=== PATIENT | female | born 1995 | race Caucasian/White ===

== ENCOUNTER 2017-08-02 21:37 | Emergency (ER) | payer OTHER ==
[2017-08-02 23:36] LABS: BASOPHIL % 0.2 % (0-2)
[2017-08-02 23:40] LABS: PLATELET COUNT 419 x10^3mcL (130-400); RED CELL DISTRIBUTION WIDTH 17.1 % (11.5-14.5)
[2017-08-02 23:46] LABS: CALCIUM 8.2 mg/dL (8.5-10.1); CARBON DIOXIDE 25.5 mmol/L (21-32); CHLORIDE SERUM 102 mmol/L (98-107); CREATININE SERUM 0.8 mg/dL (0.6-1.0); GFR1 > 60 mL/min; GLUCOSE SERUM 116 mg/dL (74-106); POTASSIUM SERUM 3.4 mmol/L (3.5-5.1); SODIUM SERUM 137 mmol/L (136-145)
[2017-08-02 23:51] LABS: ALKALINE PHOSPHATASE 165 U/L (46-116); ALT/SGPT 57 U/L (14-59); AMYLASE 46 U/L (25-115); AST/SGOT 50 U/L (15-37); BILIRUBIN TOTAL 0.43 mg/dL (0.20-1.00); LIPASE 113 IU/L (73-393); TOTAL PROTEIN, SERUM 7.8 g/dL (6.4-8.2)
[2017-08-03 02:47] LABS: microscopic required? YES; urine erythrocyte NEGATIVE (NEGATIVE)
[2017-08-03 18:23] VITALS: BP 196/126
== END 2017-08-03 18:36 | disposition short-term general hospital (02) ==
LOC: ED 21:37
PROVIDERS: Emergency Medicine
DX: C18.9 Malignant neoplasm of colon, unspecified (principal); D64.9 Anemia, unspecified
CPT/HCPCS: 83880; J1885; J2060; J2405; J2550; J3010; J3490; J7030; Q0092; Q9966; Q9967

== ENCOUNTER 2018-04-14 13:38 | Emergency (ER) | payer OTHER ==
[~2018-04-14] VITALS: Ht 165.1 cm; Wt 117.0 kg
[2018-04-14 14:32] VITALS: Ht 165.1 cm; Wt 117.0 kg
[2018-04-14 15:58] VITALS: BP 149/98
== END 2018-04-14 15:58 | disposition home or self-care (01) ==
LOC: ED 13:38
DX: S16.1XXA Strain of muscle, fascia and tendon at neck level, initial encounter (principal); X58.XXXA Exposure to other specified factors, initial encounter; Y93.89 Activity, other specified; Y92.89 Other specified places as the place of occurrence of the external cause; Y99.8 Other external cause status

== ENCOUNTER 2018-08-18 19:07 | Emergency (ER) | payer OTHER ==
[~2018-08-18] VITALS: Ht 167.6 cm; Wt 81.6 kg
[2018-08-18 19:58] VITALS: Ht 167.6 cm; Wt 81.6 kg
[2018-08-18 20:09] VITALS: BP 163/98
== END 2018-08-18 20:09 | disposition home or self-care (01) ==
LOC: ED 19:07
DX: S30.1XXA Contusion of abdominal wall, initial encounter (principal); S20.211A Contusion of right front wall of thorax, initial encounter; S70.311A Abrasion, right thigh, initial encounter; K21.9 Gastro-esophageal reflux disease without esophagitis; Z98.890 Other specified postprocedural states; V49.9XXA Car occupant (driver) (passenger) injured in unspecified traffic accident, initial encounter; Y93.I9 Activity, other involving external motion; Y92.488 Other paved roadways as the place of occurrence of the external cause; Y99.8 Other external cause status